=== PATIENT | female | born 1975 | race Caucasian/White ===

== ENCOUNTER 2016-11-19 08:42 | Inpatient (IN) | payer OTHER ==
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
[~2016-11-19 08:42] MED LIST: Buffered Lidocaine 1% SYR 3ML* 3 ML/SYR SYRINGE INTRADERM ONE; Bupivacaine 0.5% W/EPI SDV* 30 ML VIAL ONE; Methylene Blue 1%* 10 ML VIAL ONE
[2016-11-19] MEDS ORDERED: Heparin VIAL(*) 5000 UNITS/ML VIAL (FIVE THOUSAND) ONE (08:48)
[2016-11-19] MEDS ORDERED: ceFAZolin 1 GM in Dextrose (*) 1 GM/50 ML BAG IVPB ONE (08:49)
[2016-11-19] MEDS ORDERED: Clindamycin 900 MG IVPREMIX(* 900 MG/50 ML SDV IV ONE (08:49)
[2016-11-19] MEDS ORDERED: Buffered Lidocaine 1% SYR 3ML* 3 ML/SYR SYRINGE ONE (08:49)
[2016-11-19] MEDS ORDERED: ceFAZolin 2 GM PREMIX (*) 2 GM/50 ML BAG IVPB ONE (08:49)
[2016-11-19 09:10] LABS: Manual Entry Verification HAN0055; UR Preg Internal Control QC Line Present
[2016-11-19] MEDS ORDERED: fentaNYL* 50 MCG/ML 2 ML VIAL (100 MCG VIAL) ONE ×2 (11:07→15:41)
[2016-11-19] MEDS ORDERED: Dexamethasone IV* 4 MG/ML 1 ML (4 MG) ONE (11:07)
[2016-11-19] MEDS ORDERED: Propofol* 10 MG/ML 20 ML BTL IV PUSH ONE (11:07)
[2016-11-19] MEDS ORDERED: Midazolam* 1 MG/ML 5 ML VIAL (5 MG) ONE (11:08)
[2016-11-19] MEDS ORDERED: Atracurium* 10 MG/ML 10 ML VIAL ONE (11:08)
[2016-11-19] MEDS ORDERED: Ondansetron INJ* 2 MG/ML VIAL ONE ×2 (11:16→16:27)
[2016-11-19] MEDS ORDERED: Acetaminophen ADULT LIQ* 650 MG/20.3 ML UDC PO PRN (15:32)
[2016-11-19] MEDS ORDERED: diPHENhydraMINE IV* 50 MG/ML 1 ml VIAL (BENADRYL) SLOW PUSH PRN (15:32)
[2016-11-19] MEDS ORDERED: Ondansetron INJ* 2 MG/ML VIAL IV PRN ×2 (15:32→15:34)
[2016-11-19] MEDS ORDERED: DiMENhydriNATE IV* 50 MG/ML VIAL IV PUSH PRN (15:34)
--- NOTE | 2016-11-19 15:40 | SURGPN ---
Brief Operative Note - Surgery Procedures: PRE/POSTOP DX: MORBID OBESITY PROC: LRYGB SURG: MECENAS ASSIST: DYAN ANES: GET/SANITO EBL: MIN IVF: LR SPEC: NONE DRAIN: NONE COMPL: NONE COND: STABLE TO RR
[2016-11-19] MEDS ORDERED: HYDROmorphone INJ* 1 MG/ML CARPUJECT SYRINGE ONE (15:41)
[2016-11-19] MEDS ORDERED: DiMENhydriNATE IV* 50 MG/ML VIAL ONE (15:42)
[2016-11-19] MEDS: fentaNYL* 50 MCG/ML 2 ML VIAL (100 MCG VIAL) IV PRN ×4 (15:46→16:51)
[2016-11-19] MEDS: HYDROmorphone INJ* 1 MG/ML CARPUJECT SYRINGE IV PRN ×6 (15:47→22:02)
[2016-11-19] MEDS ORDERED: Insulin REGULAR(*) 1 UNITS UNIT ONE (16:15)
[2016-11-19] MEDS ORDERED: Ketorolac INJ* 30 MG/ML 1 ML VIAL ONE (17:24)
[2016-11-19] MEDS: Ketorolac INJ* 30 MG/ML 1 ML VIAL IV PRN (17:25)
[2016-11-19] MEDS ORDERED: Labetalol IV* 5 MG/ML 20 ML VIAL ONE (17:44)
[2016-11-19] MEDS ORDERED: Insulin REGULAR(*) 1 UNITS UNIT SUBCUT SCH (18:00)
[2016-11-19] MEDS ORDERED: Famotidine IV * 20 MG in NS 0.9% 100 ML* 100 ML IVPB SCH (21:00)
[2016-11-19] MEDS: Heparin VIAL(*) 5000 UNITS/ML VIAL (FIVE THOUSAND) SUBCUT SCH (22:13)
[2016-11-20] MEDS: Insulin REGULAR(*) 1 UNITS UNIT SUBCUT SCH ×5 (00:05→23:46)
[2016-11-20] MEDS: Ketorolac INJ* 30 MG/ML 1 ML VIAL IV PRN ×3 (00:06→17:08)
[2016-11-20] MEDS: Heparin VIAL(*) 5000 UNITS/ML VIAL (FIVE THOUSAND) SUBCUT SCH ×3 (06:03→23:34)
--- NOTE | 2016-11-20 06:23 | OP ---
DATE OF OPERATION: 11/19/16 - ROOM #352 DATE OF : 75 SURGEON: Lionel Yanez MD [facility]: Richard Harvey MD ANESTHESIOLOGIST: Dr. Tomas. ANESTHESIA: General endotracheal. PRE-OP DIAGNOSIS: Morbid obesity. POST-OP DIAGNOSIS: Morbid obesity. OPERATIVE PROCEDURE: Laparoscopic Jose-en-Y gastric bypass. ESTIMATED BLOOD LOSS: Minimal. IV FLUIDS: Crystalloids. SPECIMEN: None. DRAINS: None. COMPLICATIONS: None. COUNTS: The instruments, needle, and sponge counts were correct. DESCRIPTION OF PROCEDURE: The patient was brought to the operating room and placed on table supine. Sequential compression devices were placed in both lower extremities. General anesthesia was administered. The abdomen was prepped and draped in the usual sterile fashion. She received appropriate intravenous antibiotics. A Keith catheter was placed prior to the prep. A time -out was performed. Local anesthetic was infiltrated into the skin and soft tissue prior to making its incision. Entry to the abdomen was through a left upper quadrant incision accommodating a 12-mm optical trocar. After accessing the peritoneal cavity, carbon dioxide was insufflated to a pressure of 15 mmHg. Under direct visualization, a 12-mm bladeless trocar was placed in the supraumbilical midline and also in the right upper quadrant; 5 mm bladeless trocars were placed in the right upper quadrant medially and left upper quadrant laterally. A Celestino liver retractor was placed percutaneously in the subxiphoid position and used to elevate the left lobe of the liver. The patient's gastric anatomy revealed it to be normal. Further this was freed from the attachments to the left adina of the diaphragm bluntly near the angle of His. Then perigastric dissection was undertaken on the lesser curvature in order to enter the lesser sac. After entering the lesser sac, the gastric pouch was created. Transverse firing with a Endo TANISHA stapler with a gomez cartridge was used and then vertical firings with the Endo TANISHA stapler with gomez cartridges was used to complete the gastric pouch, which approximated to 20 mL volume. After assuring hemostasis of the staple lines, the small bowel was then identified at the ligament of Treitz and measured out 40 to 50 cm at which point, the bowel was approximated to the left lateral aspect of the gastric pouch with interrupted 3- 0 silks. The bowel was oriented so that the Jose limb would be to the right side of the patient and the biliopancreatic limb to the left of the side of the patient. The gastrojejunal anastomosis was then created with the Endo TANISHA stapler with a gomez cartridge and then the common gastroenterotomy was closed with a 3-0 Maxon single layer running. This was done over a 36-[place] gastric lavage tube. The bowel loop was then divided with a Endo TANISHA stapler with a gomez cartridge. The anastomosis was then tested with methylene blue dye solution still through the orogastric tube. After identifying no leaks of the anastomosis, the Jose limb was then measured out for 75 cm and at this point, a functional end- to-side jejunostomy was created with a 16 mm gomez cartridge. Common enterotomy was closed again with 3-0 Maxon. The mesenteric defect was closed with 3-0 silk in a running locking fashion. The inspection revealed each anastomosis to be intact and hemostasis was excellent. Celestino liver retractor was removed under direct visualization as were the trocars and the carbon dioxide was released. Skin incisions were closed with monty. Dressings were applied. The patient tolerated the procedure well. She was extubated uneventfully. She was transferred to the recovery room in a stable condition. CC: Dr. Keri Krishnamurthy; [facility] * [id number]/[facility] #: [id number] LIZ
[2016-11-20] MEDS: HYDROmorphone INJ* 1 MG/ML CARPUJECT SYRINGE IV PRN ×3 (06:46→20:13)
[2016-11-20] MEDS: Famotidine IV* 10 MG/ML 2 ML (20 mg) IV SCH ×2 (08:43→21:10)
[2016-11-20] MEDS: D5W 1/2 NS KCl 20 Meq 1000 ML* 1,000 ML IV SCH (17:06)
[2016-11-20] MEDS: HYDROcodone/ACET. 7.5/325 LIQ* 15 ML UDC PO PRN ×2 (17:07→23:33)
[2016-11-21] MEDS: D5W 1/2 NS KCl 20 Meq 1000 ML* 1,000 ML IV SCH ×2 (01:14→09:14)
[2016-11-21] MEDS: Insulin REGULAR(*) 1 UNITS UNIT SUBCUT SCH ×2 (06:10→12:03)
[2016-11-21] MEDS: Heparin VIAL(*) 5000 UNITS/ML VIAL (FIVE THOUSAND) SUBCUT SCH ×2 (06:12→13:55)
[2016-11-21] MEDS: HYDROcodone/ACET. 7.5/325 LIQ* 15 ML UDC PO PRN ×2 (07:59→13:54)
[2016-11-21] MEDS: Famotidine IV* 10 MG/ML 2 ML (20 mg) IV SCH (09:15)
[2016-11-21 11:50] VITALS: BP 126/77
--- NOTE | 2016-11-21 14:03 | PN ---
Progress Note - Progress Note Note: Surgery Progress: S: POD #2. Seen this a.m. by Dr. Yanez. c/o abd pain (using hydrocodone w/ effect); better than yesterday. Meche clears; no N/V. Passing flatus. Ambulating. Voiding well. O: Vital Signs - 8 hr 11/21/16 11/21/16 11/21/16 06:14 07:35 07:59 Temperature 98.2 F Pulse Rate 88 Respiratory 16 16 16 Rate Blood Pressure 121/43 (mmHg) O2 Sat by Pulse 95 95 Oximetry 11/21/16 11/21/16 11/21/16 08:00 09:59 10:00 Temperature Pulse Rate Respiratory 18 16 18 Rate Blood Pressure (mmHg) O2 Sat by Pulse 95 95 Oximetry 11/21/16 11/21/16 11/21/16 11:48 12:00 13:54 Temperature 98.5 F Pulse Rate 56 Respiratory 16 17 16 Rate Blood Pressure 126/77 (mmHg) O2 Sat by Pulse 97 94 Oximetry Intake and Output Last 24 Hours 11/19/16 11/20/16 11/21/16 11/22/16 06:59 06:59 06:59 06:59 Intake Total 4915 3320 1299 Output Total 2875 1900 1400 Balance 2040 1420 -101 Weight 228 lb Intake: IV Fluids 4810 2960 1299 D5W 1/2 NS 20 meq KCL 980 1299 LR 3960 1980 Lactated Ringer's 850 IVPB 105 LR 105 Oral 0 360 Output: Urine 2325 1900 1400 Keith 550 Other: # Bowel Movements 0 Heart: reg Lungs: decreased BS at bases (has IS at bedside); upper qiu clear Abd: lap incisions ok; one w/ dry dressings, others open. +BS. Soft, mild to mod , mostly incisional tenderness. Lab/fs gluc: Laboratory Tests 11/20/16 11/20/16 11/20/16 11:46 18:30 23:40 POC Glucose (mg/dL) 101 138 H 157 H 11/21/16 11/21/16 06:08 11:42 POC Glucose (mg/dL) 134 H 152 H A: s/p lap Jose En Y gastric bypass, doing well P: ok for d/c home; instructions reviewed; office f/u 1 wk
--- NOTE | 2016-11-21 21:29 | DS ---
DISCHARGE SUMMARY: DATE OF ADMISSION: 11/19/16 DATE OF DISCHARGE: 11/21/16 ATTENDING SURGEON: Lionel Yanez MD HOSPITAL COURSE: Please refer to admission history and physical for admission details. The patient was taken to the operating room on 11/19/16; at which time , she underwent laparoscopic Jose-en-Y gastric bypass with Dr. Yanez. She has had an otherwise uneventful postoperative course with gradual improvement in both her pain management and her oral intake of bariatric clear liquids. She was seen earlier this morning and again this afternoon and it was felt that she met criteria for discharge. PHYSICAL EXAMINATION: Vital signs: Exam as of the afternoon of discharge, temperature 98.5, blood pressure 126/77, pulses ranged from 48 to 88 over the last 24 hours, respirations 16 to 18, and room air saturation 90% to 98% (she does use CPAP at night). General: Well appearing, in no acute distress. Skin : Warm and dry. No suspicious rashes or lesions. Lungs: Clear to auscultation in the upper qiu, but with decreased breath sounds at both bases (the patient encouraged to continue to use her incentive spirometer). Heart: Regular rate and rhythm. No murmur noted. Abdomen: Laparoscopic port sites are clean with monty intact, one of the sites is covered with a 2 x 2 dressing, which is clean and dry. Bowel sounds are present. Abdomen is soft with [id number]-cv-kavjgogk tenderness, which is primarily incisional. Fingersticks over the last 24 hours have ranged from 101 to 157. IMPRESSION: Status post laparoscopic Jose-en-Y gastric bypass, doing well. PLAN: Discharge home today. Instructions were reviewed with the patient. She will call to set up a followup in our office within 1 week. She will resume all of her usual medications as she is able with the exception of metformin, which will be on hold. She will monitor fingersticks at home as needed. She may use Tylenol and ddcf-hes-zklpoer ibuprofen p.r.n. for mild pain and she has a prescription for hydrocodone liquid for stronger pain. TONEY HEATH CC: Dr. Krishnamurthy in [place] * [id number]/[facility] #: [id number] LIZ
== END 2016-11-21 14:30 | disposition home or self-care (01) | DRG 403 ==
LOC: AA 08:42 → SSU 15:32
PROVIDERS: ADMIT Surgery; ATTEND Surgery
PROC: 0D164ZA Bypass Stomach to Jejunum, Percutaneous Endoscopic Approach (ICD-10-PCS; principal; 2016-11-19 10:15)
DX: E66.01 Morbid (severe) obesity due to excess calories (principal); F32.9 Major depressive disorder, single episode, unspecified; Z68.42 Body mass index [BMI] 45.0-49.9, adult; G47.33 Obstructive sleep apnea (adult) (pediatric); E11.9 Type 2 diabetes mellitus without complications; E78.00 Pure hypercholesterolemia, unspecified; F41.9 Anxiety disorder, unspecified; J45.909 Unspecified asthma, uncomplicated; Z83.3 Family history of diabetes mellitus; Z82.49 Family history of ischemic heart disease and other diseases of the circulatory system
CPT/HCPCS: 81025; 94760; C1776; J0690; J1100; J1170; J1240; J1644; J1885; J2250; J2405; J2704; J3010

== ENCOUNTER → 2017-12-15 08:48 | Emergency (ER) | payer OTHER ==
[2017-12-15 10:15] VITALS: BP 133/84
--- NOTE | 2017-12-15 10:38 | UC ---
FLU HPI - HPI Summary HPI Summary: Pt c/o sudden onset of fever, chills, body aches X 2 days. Pt was seen by PCP on friday12/10/17.was diagnosed with sinusitis and is currently on amox. - History of Current Complaint Chief Complaint: UCRespiratory Stated Complaint: FLU LIKE SYMPTOMS Time Seen by Provider: 12/15/17 10:12 Hx Obtained From: Patient Hx Last Menstrual Period: 12/08/17 ?: No Onset/Duration: Sudden Onset, Lasting Days, Still Present, Worse Since - onset Severity Currently: Moderate Severity Initially: Moderate Pain Intensity: 10 Associated Signs & Symptoms: Positive: Fever, Myalgia, Nasal Congestion - Risk Factors Influenza Risk Factors: Negative - Allergy/Home Medications Allergies/Adverse Reactions: Allergies Allergy/AdvReac Type Severity Reaction Status Date / Time NSAIDS (Non-Steroidal Allergy See Comment Verified 12/15/17 10:04 Anti-Inflamma PMH/Surg Hx/FS Hx/Imm Hx Previously Healthy: Yes - Surgical History Surgical History: Yes Surgery Procedure, Year, and Place: SHOULDER SURGERY. [id number]. SURGERY AN FOR FUSED BONES IN SKULL. 2016 D&C. Nov 2016 Gastric bypass - Family History Known Family History: Positive: Cardiac Disease - Social History Occupation: Employed Full-time Lives: With Family Alcohol Use: None Alcohol Amount: 1/ YEAR Substance Use Type: None Smoking Status (MU): Never Smoked Tobacco Have You Smoked in the Last Year: No - Immunization History Most Recent Influenza Vaccination: decl Most Recent Tetanus Shot: not ordered Most Recent Pneumonia Vaccination: none Review of Systems Constitutional: Fever, Chills, Fatigue Skin: Negative Eyes: Negative ENT: Sinus Congestion Respiratory: Cough Cardiovascular: Negative Gastrointestinal: Negative Genitourinary: Negative Motor: Negative Neurovascular: Negative Musculoskeletal: Myalgia Neurological: Headache Psychological: Negative Is Patient Immunocompromised?: No All Other Systems Reviewed And Are Negative: Yes Physical Exam Triage Information Reviewed: Yes Appearance: Ill-Appearing Vital Signs: Initial Vital Signs Temp 100 F 12/15/17 10:06 Pulse 71 12/15/17 10:06 Resp 16 12/15/17 10:06 BP 133/84 12/15/17 10:06 Pulse Ox 100 12/15/17 10:06 Vital Signs Reviewed: Yes Eye Exam: Normal ENT Exam: Other ENT: Positive: Nasal congestion, Sinus tenderness Dental Exam: Normal Neck exam: Normal Respiratory Exam: Normal Cardiovascular Exam: Normal Musculoskeletal Exam: Normal Neurological Exam: Normal Psychological Exam: Normal Skin Exam: Normal Diagnostics - Laboratory Diagnostic Studies Completed/Ordered: Rapid: INfluenza A Flu Course/Dx - Differential Dx/Diagnosis Differential Diagnosis/HQI/PQRI: Influenza, Pneumonia Provider Diagnoses: INfluenza A Discharge - Discharge Plan Condition: Stable Disposition: HOME Prescriptions: Oseltamivir CAP* [Tamiflu CAP*] 75 mg PO Q12H #10 cap predniSONE TAB* [Deltasone TAB*] 30 mg PO DAILY #12 tab Patient Education Materials: Influenza (ED) Forms: *Work Release Referrals: Keri Krishnamurthy MD [Primary Care Provider] - If Needed
== END | disposition home or self-care (01) ==
LOC: UCCORT 08:48
DX: J09.X2 Influenza due to identified novel influenza A virus with other respiratory manifestations (principal)
CPT/HCPCS: 87502; 99212; G0463

== ENCOUNTER 2018-12-23 07:01 | Emergency (ER) | payer BC ==
--- OUTSIDE RECORDS SUMMARY | 2018-12-23 07:13 | XMS REPORT | Continuity of Care Document ---
:1975 External Reference #:[id number] Author Name Lisa Esquivel Care Team Providers Name Role Phone Keri Krishnamurthy MD Primary Care Physician Unavailable Payers Type Date Identification Numbers Payment Provider Subscriber Effective: 2018 Policy Number: [id number] [employer] Anna Faria PayID: [id number] [address] [address] [place] [address] Advance Directives Description No Information Available Problems Description No Information Family History Date Family Member(s) Problem(s) Comments General Diabetes General Heart Disease General Deep Venous Thrombosis (DVT) Father due to Diabetes () Mother due to Heart Disease () Social History Type Date Description Comments Sex Unknown Lives With Lives With Daughter Occupation Currently Working ETOH Use Denies alcohol use Tobacco Use Start: Unknown Patient has never smoked Smoking Status Reviewed: 11/24/18 Patient has never smoked Exercise Exercises at a health Document: 08/22/16 - Type/Frequency club 5 times a week [facility] Chart Prep Exercise Walks sporadically Type/Frequency Allergies, Adverse Reactions, Alerts Description No Known Drug Allergies Medications Medication Date Status Form Strength Qnty SIG Indications Ordering Provider Nystatin 08/29/ Active Powder 1units Apply to June Escoto 2017 affected MD Jaret areas bid prn Vitamin D / Active Capsules 2000Units daily Unknown (Ergocalcifero 0000 (when pt l) remebers) Vitamin B12 / Active 1 by mouth Unknown 0000 every day-SL Cetirizine HCL / Active Chewtabs 10mg once a day Unknown 0000 Sertraline HCL / Active Tablets 50mg 1 by mouth Unknown 0000 every day Buspirone HCL / Active Tablets 5mg 1 by mouth Unknown 0000 two times a day Metformin HCL / Active Tablets 500mg 2 by mouth Unknown 0000 every evening Daily Multiple / Active Tablets 1 by mouth Unknown Vitamins 0000 every day Omeprazole / Active Capsules 20mg 1 by mouth Unknown 0000 DR every day Hydrocodone 11/07/ Hx Solution 7.5-325mg/ 240ml 10ml-15ml Gilda Bitartrate/Heath 2017 15ML by mouth B. 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 Simvastatin / Hx Tablets 20mg 1 by mouth Unknown 0000 every day Buspirone HCL / Hx Tablets 7.5mg 1 by mouth Unknown 0000 daily Metformin HCL / Hx Tablets 1000mg 1 by mouth Unknown 0000 twice a day Cetirizine HCL / Hx Chewtabs 10mg daily Unknown 0000 Citalopram / Hx Tablets 40mg 1 by mouth Unknown Hydrobromide 0000 - every day 2018 Diclofenac / Hx Tablets DR 75mg take 1 Unknown Sodium 0000 tablet twice a day prn with food Vitamin C / Hx Capsules 500mg 1 by mouth Unknown 0000 every day Flintstones / Hx 2 tabs Unknown 0000 - daily 2018 Calcium Chews / Hx 250 MG Unknown 0000 three times a day Biotin Maximum / Hx Tablets [id number] take one Unknown Strength 0000 capsule/ta blet daily by mouth Immunizations Description No Information Available Vital Signs Date Vital Result Comment 11/24/2018 2:48pm Height 59 inches 4'11" Weight 176.00 lb Heart Rate 56 /min BP Systolic 114 mmHg BP Diastolic 80 mmHg O2 % BldC Oximetry 98 % BMI (Body Mass Index) 35.5 kg/m2 Last Menstrual Period [id number] 08/29/2017 10:07am Height 59 inches 4'11" Weight 165.00 lb Heart Rate 66 /min BP Systolic Sitting 102 mmHg BP Diastolic Sitting 70 mmHg Respiratory Rate 16 /min Body Temperature 98.0 F BMI (Body Mass Index) 33.3 kg/m2 05/15/2017 10:04am Height 59 inches 4'11" Weight 179.00 lb Heart Rate 68 /min BP Systolic 116 mmHg BP Diastolic 72 mmHg Respiratory Rate 16 /min Body Temperature 98.4 F BMI (Body Mass Index) 36.1 kg/m2 02/13/2017 10:22am Height 59 inches 4'11" Weight 197.00 lb Heart Rate 66 /min BP Systolic 112 mmHg BP Diastolic 72 mmHg Respiratory Rate 16 /min Body Temperature 97.9 F BMI (Body Mass Index) 39.8 kg/m2 12/20/2016 10:32am Height 59 inches 4'11" Weight 210.00 lb Heart Rate 78 /min BP Systolic 124 mmHg BP Diastolic 78 mmHg Respiratory Rate 16 /min Body Temperature 98.2 F BMI (Body Mass Index) 42.4 kg/m2 11/29/2016 3:48pm Height 59 inches 4'11" Weight 212.00 lb Heart Rate 72 /min BP Systolic 110 mmHg BP Diastolic 80 mmHg Respiratory Rate 20 /min Body Temperature 98.6 F BMI (Body Mass Index) 42.8 kg/m2 11/27/2016 11:24am Height 59 inches 4'11" Weight 214.00 lb Heart Rate 74 /min BP Systolic Sitting 126 mmHg BP Diastolic Sitting 88 mmHg Respiratory Rate 18 /min Body Temperature 98.7 F BMI (Body Mass Index) 43.2 kg/m2 11/07/2016 9:16am Height 59 inches 4'11" Weight 232.00 lb Heart Rate 84 /min BP Systolic Sitting 120 mmHg BP Diastolic Sitting 82 mmHg Respiratory Rate 16 /min Body Temperature 97.7 F BMI (Body Mass Index) 46.9 kg/m2 09/09/2016 11:37am Height 59 inches 4'11" Weight 232.00 lb Heart Rate 72 /min BP Systolic 112 mmHg BP Diastolic 72 mmHg Respiratory Rate 16 /min Body Temperature 98.6 F BMI (Body Mass Index) 46.9 kg/m2 08/22/2016 9:46am Height 59 inches 4'11" Weight 237.00 lb Heart Rate 78 /min BP Systolic 110 mmHg BP Diastolic 62 mmHg Respiratory Rate 16 /min Body Temperature 97.9 F BMI (Body Mass Index) 47.9 kg/m2 Results Test Date Facility Test Result H/L Range Note CBC Auto Diff 05/09/2018 [facility] White Blood 6.5 10^3/uL N 3.5-10.[address] [place] [address] [phone] Red Blood Count 4.24 10^6/uL N 4.00-5.40 Hemoglobin 12.8 g/dL N 12.0-16.0 Hematocrit 39 % N 35-47 Mean Corpuscular Volume 92 fL N 80-97 Mean Corpuscular Hemoglobin 30 pg N 27-31 Mean Corpuscular HGB Conc 33 g/dL N 31-36 Red Cell Distribution Width 13 % N 10.5-15 Platelet Count 230 10^3/uL N 150-450 Mean Platelet Volume 9.2 um3 N 7.4-10.4 Abs Neutrophils 3.8 10^3/uL N 1.5-7.7 Abs Lymphocytes 2.1 10^3/uL N 1.0-4.8 Abs Monocytes 0.4 10^3/uL N 0-0.8 Abs Eosinophils 0.1 10^3/uL N 0-0.6 Abs Basophils 0.1 10^3/uL N 0-0.2 Abs Nucleated RBC 0 10^3/uL Granulocyte % 58.6 % N 38-83 Lymphocyte % 32.1 % N 25-47 Monocyte % 6.5 % N 0-7 Eosinophil % 1.8 % N 0-6 Basophil % 1.0 % N 0-2 Nucleated Red Blood Cells % 0 Comp Metabolic Panel 05/09/2018 [facility] Sodium 139 mmol/L N 135-[address] [place] [address] [phone] Potassium 4.1 mmol/L N 3.5-5.0 Chloride 104 mmol/L N 101-111 Co2 Carbon Dioxide 29 mmol/L N 22-32 Anion Gap 6 mmol/L N 2-11 Glucose 93 mg/dL N 70-100 Blood Urea Nitrogen 9 mg/dL N 6-24 Creatinine 0.61 mg/dL N 0.51-0.95 BUN/Creatinine Ratio 14.8 N 8-20 Calcium 8.5 mg/dL Low 8.6-10.3 Total Protein 6.2 g/dL Low 6.4-8.9 Albumin 3.6 g/dL N 3.2-5.2 Globulin 2.6 g/dL N 2-4 Albumin/Globulin Ratio 1.4 N 1-3 Total Bilirubin 0.60 mg/dL N 0.2-1.0 Alkaline Phosphatase 76 U/L N 34-104 Alt 20 U/L N 7-52 Ast 19 U/L N 13-39 Egfr Non- 107.0 >60 Egfr 129.5 >60 1 Iron & Iron Binding 05/09/2018 [facility] Iron 115 g/dL N 50 -212 [address] [place] [address] [phone] Unsaturated Iron Binding 298 g/dL Total Iron Binding Capacity 413 g/dL N 250-450 Transferrin 295 mg/dL N 203-362 % Iron Saturation 28 % N 15-55 Laboratory test 05/09/2018 [facility] Ferritin 4.3 ng/mL Low 11-307 finding [address] [place] [address] [phone] Folic Acid (Folate) 10.12 ng/mL >3.99 Vitamin B12 599 pg/mL N 180-914 2 Vitamin D Total 25(Oh) 28.0 ng/mL N 20-50 Hemoglobin A1c 6.5 % High 4.0-5.6 3 Vitamin B1 (Whole Blood) 130 nmol/L 70-180 4 Vitamin E Level 11.4 mg/L 5.5 - 17.0 5 CBC Auto Diff 01/12/2018 [facility] White Blood 6.7 10^3/uL N 3.5-10.[address] [place] [address] [phone] Red Blood Count 4.28 10^6/uL N 4.0-5.4 Hemoglobin 13.3 g/dL N 12.0-16.0 Hematocrit 40 % N 35-47 Mean Corpuscular Volume 93 fL N 80-97 Mean Corpuscular Hemoglobin 31 pg N 27-31 Mean Corpuscular HGB Conc 33 g/dL N 31-36 Red Cell Distribution Width 13 % N 10.5-15 Platelet Count 232 10^3/uL N 150-450 Mean Platelet Volume 9 um3 N 7.4-10.4 Abs Neutrophils 3.9 10^3/uL N 1.5-7.7 Abs Lymphocytes 2.1 10^3/uL N 1.0-4.8 Abs Monocytes 0.4 10^3/uL N 0-0.8 Abs Eosinophils 0.2 10^3/uL N 0-0.6 Abs Basophils 0.1 10^3/uL N 0-0.2 Abs Nucleated RBC 0 10^3/uL Granulocyte % 58.3 % N 38-83 Lymphocyte % 31.5 % N 25-47 Monocyte % 6.5 % N 0-7 Eosinophil % 2.7 % N 0-6 Basophil % 1.0 % N 0-2 Nucleated Red Blood Cells % 0 Comp Metabolic Panel 01/12/2018 [facility] Sodium 138 mmol/L N 133-145 [address] [place] [address] [phone] Potassium 4.0 mmol/L N 3.5-5.0 Chloride 104 mmol/L N 101-111 Co2 Carbon Dioxide 29 mmol/L N 22-32 Anion Gap 5 mmol/L N 2-11 Glucose 90 mg/dL N 70-100 Blood Urea Nitrogen 7 mg/dL N 6-24 Creatinine 0.54 mg/dL N 0.51-0.95 BUN/Creatinine Ratio 13.0 N 8-20 Calcium 8.6 mg/dL N 8.6-10.3 Total Protein 6.0 g/dL Low 6.4-8.9 Albumin 3.6 g/dL N 3.2-5.2 Globulin 2.4 g/dL N 2-4 Albumin/Globulin Ratio 1.5 N 1-3 Total Bilirubin 0.70 mg/dL N 0.2-1.0 Alkaline Phosphatase 73 U/L N 34-104 Alt 30 U/L N 7-52 Ast 19 U/L N 13-39 Egfr Non- 123.8 >60 Egfr 159.2 >60 6 Iron & Iron Binding 01/12/2018 [facility] Iron 139 g/dL N 50 -212 [address] [place] [address] [phone] Unsaturated Iron Binding 217 g/dL Total Iron Binding Capacity 356 g/dL N 250-450 Transferrin 254 mg/dL N 203-362 % Iron Saturation 39 % N 15-55 Laboratory test 01/12/2018 [facility] Ferritin 13.3 ng/mL N 11 -307 7 finding [address] [place] [address] [phone] Folic Acid (Folate) 6.76 ng/mL >3.99 8 Vitamin B12 909 pg/mL N 180-914 9 Vitamin D Total 25(Oh) 17.3 ng/mL Low 20-50 10 Vitamin B1 (Whole Blood) 116 nmol/L 70-180 11 Vitamin E Level 9.3 mg/L 5.5 - 17.0 12 Iron & Iron Binding 08/15/2017 [facility] Iron 110 g/dL N 50 -[address] [place] [address] [phone] Unsaturated Iron Binding 257 g/dL N Total Iron Binding Capacity 367 g/dL N 250-450 % Iron Saturation 30 % N 15-55 CBC Auto Diff 08/15/2017 [facility] White Blood 5.6 10^3/uL N 3.5-10.[address] [place] [address] [phone] Red Blood Count 4.44 10^6/uL N 4.0-5.4 Hemoglobin 13.7 g/dL N 12.0-16.0 Hematocrit 41 % N 35-47 Mean Corpuscular Volume 93 fL N 80-97 Mean Corpuscular Hemoglobin 31 pg N 27-31 Mean Corpuscular HGB Conc 33 g/dL N 31-36 Red Cell Distribution Width 13 % N 10.5-15 Platelet Count 224 10^3/uL N 150-450 Mean Platelet Volume 9 um3 N 7.4-10.4 Abs Neutrophils 3.1 10^3/uL N 1.5-7.7 Abs Lymphocytes 1.9 10^3/uL N 1.0-4.8 Abs Monocytes 0.4 10^3/uL N 0-0.8 Abs Eosinophils 0.1 10^3/uL N 0-0.6 Abs Basophils 0 10^3/uL N 0-0.2 Abs Nucleated RBC 0 10^3/uL N Granulocyte % 56.0 % N 38-83 Lymphocyte % 34.1 % N 25-47 Monocyte % 6.7 % N 1-9 Eosinophil % 2.3 % N 0-6 Basophil % 0.9 % N 0-2 Nucleated Red Blood Cells % 0.1 N Comp Metabolic Panel 08/15/2017 [facility] Sodium 138 mmol/L N 133-[address] [place] [address] [phone] Potassium 4.3 mmol/L N 3.5-5.0 Chloride 105 mmol/L N 101-111 Co2 Carbon Dioxide 29 mmol/L N 22-32 Anion Gap 4 mmol/L N 2-11 Glucose 86 mg/dL N 70-100 Blood Urea Nitrogen 8 mg/dL N 6-24 Creatinine 0.58 mg/dL N 0.51-0.95 BUN/Creatinine Ratio 13.8 N 8-20 Calcium 8.5 mg/dL Low 8.6-10.3 Total Protein 6.1 g/dL Low 6.4-8.9 Albumin 3.9 g/dL N 3.2-5.2 Globulin 2.2 g/dL N 2-4 Albumin/Globulin Ratio 1.8 N 1-3 Total Bilirubin 0.70 mg/dL N 0.2-1.0 Alkaline Phosphatase 83 U/L N 34-104 Alt 33 U/L N 7-52 Ast 21 U/L N 13-39 Egfr Non- 114.0 N >60 Egfr 146.6 N >60 13 Bariatric Panel Post 08/15/2017 [facility] Ferritin 16.2 ng/mL N 11-307 [address] [place] [address] [phone] Vitamin B12 583 pg/mL N 180-914 14 Folic Acid (Folate) 8.97 ng/mL N >3.99 Vitamin D Total 25(Oh) 21.2 ng/mL N 20-50 Vitamin B1 (Whole Blood) 89 nmol/L N 70-180 15 Vitamin E Level 7.5 mg/L N 5.5 - 17.0 16 Bariatric Panel Post 05/02/2017 [facility] Ferritin 12.0 ng/mL N 11-307 [address] [place] [address] [phone] Vitamin B12 488 pg/mL N 180-914 17 Folic Acid (Folate) 13.01 ng/mL N >3.99 Vitamin D Total 25(Oh) 21.0 ng/mL Low 30-50 Vitamin B1 Whole Blood 95 nmol/L N 70-180 18 Vitamin E Level 9.3 mg/L N 5.5 - 17.0 19 Comp Metabolic Panel 05/02/2017 [facility] Sodium 137 mmol/L N 133-145 [address] [place] [address] [phone] Potassium 4.0 mmol/L N 3.5-5.0 Chloride 107 mmol/L N 101-111 Co2 Carbon Dioxide 29 mmol/L N 22-32 Anion Gap 1 mmol/L Low 2-11 Glucose 88 mg/dL N 70-100 Blood Urea Nitrogen 9 mg/dL N 6-24 Creatinine 0.59 mg/dL N 0.51-0.95 BUN/Creatinine Ratio 15.3 N 8-20 Calcium 8.6 mg/dL N 8.6-10.3 Total Protein 5.9 g/dL Low 6.4-8.9 Albumin 3.7 g/dL N 3.2-5.2 Globulin 2.2 g/dL N 2-4 Albumin/Globulin Ratio 1.7 N 1-3 Total Bilirubin 0.60 mg/dL N 0.2-1.0 Alkaline Phosphatase 72 U/L N 34-104 Alt 20 U/L N 7-52 Ast 16 U/L N 13-39 Egfr Non- 111.8 N >60 Egfr 143.8 N >60 20 CBC Auto Diff 05/02/2017 [facility] White Blood 6.5 10^3/uL N 3.5-10.[address] [place] [address] [phone] Red Blood Count 4.17 10^6/uL N 4.0-5.4 Hemoglobin 13.0 g/dL N 12.0-16.0 Hematocrit 40 % N 35-47 Mean Corpuscular Volume 96 fL N 80-97 Mean Corpuscular Hemoglobin 31 pg N 27-31 Mean Corpuscular HGB Conc 33 g/dL N 31-36 Red Cell Distribution Width 14 % N 10.5-15 Platelet Count 212 10^3/uL N 150-450 Mean Platelet Volume 10 um3 N 7.4-10.4 Abs Neutrophils 3.6 10^3/uL N 1.5-7.7 Abs Lymphocytes 2.2 10^3/uL N 1.0-4.8 Abs Monocytes 0.5 10^3/uL N 0-0.8 Abs Eosinophils 0.1 10^3/uL N 0-0.6 Abs Basophils 0 10^3/uL N 0-0.2 Abs Nucleated RBC 0 10^3/uL N Granulocyte % 55.9 % N 38-83 Lymphocyte % 34.3 % N 25-47 Monocyte % 7.1 % N 1-9 Eosinophil % 1.9 % N 0-6 Basophil % 0.8 % N 0-2 Nucleated Red Blood Cells % 0 N Iron & Iron Binding 05/02/2017 [facility] Iron 93 g/dL N 50- [address] [place] [address] [phone] Unsaturated Iron Binding 256 g/dL N Total Iron Binding Capacity 349 g/dL N 250-450 % Iron Saturation 27 % N 15-55 CBC No Diff 11/07/2016 [facility] White Blood 11.2 10^3/uL High 3.5-10.[address] [place] [address] [phone] Red Blood Count 4.33 10^6/uL N 4.0-5.4 Hemoglobin 12.7 g/dL N 12.0-16.0 Hematocrit 39 % N 35-47 Mean Corpuscular Volume 90 fL N 80-97 Mean Corpuscular Hemoglobin 29 pg N 27-31 Mean Corpuscular HGB Conc 32 g/dL N 31-36 Red Cell Distribution Width 13 % N 10.5-15 Platelet Count 234 10^3/uL N 150-450 Mean Platelet Volume 10 um3 N 7.4-10.4 Basic Metabolic Panel 11/07/2016 [facility] Sodium 133 mmol/L N 133-[address] [place] [address] [phone] Potassium 4.0 mmol/L N 3.5-5.0 Chloride 100 mmol/L Low 101-111 Co2 Carbon Dioxide 28 mmol/L N 22-32 Anion Gap 5 mmol/L N 2-11 Glucose 100 mg/dL N 70-100 Blood Urea Nitrogen 13 mg/dL N 6-24 Creatinine 0.60 mg/dL N 0.51-0.95 BUN/Creatinine Ratio 21.7 High 8-20 Calcium 8.5 mg/dL Low 8.6-10.3 Egfr Non- 110.2 N >60 Egfr 141.7 N >60 21 1 Because ethnic data is not always readily available, this report includes an eGFR for both -Americans and non- Americans. The National Kidney Disease Education Program (NKDEP) does not endorse the use of the MDRD equation for patients that are not between the ages of 18 and 70, are , have extremes of body size, muscle mass, or nutritional status, or are non- or non-. According to the National Kidney Foundation, irrespective of diagnosis, the stage of the disease is based on the level of kidney function: Stage Description GFR(mL/min/1.73 m(2)) 1 Kidney damage with normal or decreased GFR 90 2 Kidney damage with mild decrease in GFR 60-89 3 Moderate decrease in GFR 30-59 4 Severe decrease in GFR 15-29 5 Kidney failure <15 (or dialysis) 2 Normal Range 180 to 914 Indeterminate Range 145 to 180 Deficient Range <145 3 Therapeutic target for the treatment of diabetes mellitus patients is <7% HBA1C, and in selective patients <6.0%. Please refer to [place] [employer] diabetic care guidelines for further information. 4 ADDITIONAL INFORMATION This test was developed and its performance characteristics determined by [facility] in a manner consistent with CLIA requirements. This test has not been cleared or approved by the U.S. Food and Drug Administration. Test Performed by: [facility] - [address] [address] 5 ADDITIONAL INFORMATION This test was developed and its performance characteristics determined by [facility] in a manner consistent with CLIA requirements. This test has not been cleared or approved by the U.S. Food and Drug Administration. Test Performed by: [facility] [place] [address] 6 Because ethnic data is not always readily available, this report includes an eGFR for both -Americans and non- Americans. The National Kidney Disease Education Program (NKDEP) does not endorse the use of the MDRD equation for patients that are not between the ages of 18 and 70, are , have extremes of body size, muscle mass, or nutritional status, or are non- or non-. According to the National Kidney Foundation, irrespective of diagnosis, the stage of the disease is based on the level of kidney function: Stage Description GFR(mL/min/1.73 m(2)) 1 Kidney damage with normal or decreased GFR 90 2 Kidney damage with mild decrease in GFR 60-89 3 Moderate decrease in GFR 30-59 4 Severe decrease in GFR 15-29 5 Kidney failure <15 (or dialysis) 7 FASTING 8 FASTING 9 Normal Range 180 to 914 Indeterminate Range 145 to 180 Deficient Range <145 10 FASTING 11 ADDITIONAL INFORMATION This test was developed and its performance characteristics determined by [facility] in a manner consistent with CLIA requirements. This test has not been cleared or approved by the U.S. Food and Drug Administration. Test Performed by: [facility] - [address] [address] 12 ADDITIONAL INFORMATION This test was developed and its performance characteristics determined by [facility] in a manner consistent with CLIA requirements. This test has not been cleared or approved by the U.S. Food and Drug Administration. Test Performed by: [facility] - [address] [address] 13 Because ethnic data is not always readily available, this report includes an eGFR for both -Americans and non- Americans. The National Kidney Disease Education Program (NKDEP) does not endorse the use of the MDRD equation for patients that are not between the ages of 18 and 70, are , have extremes of body size, muscle mass, or nutritional status, or are non- or non-. According to the National Kidney Foundation, irrespective of diagnosis, the stage of the disease is based on the level of kidney function: Stage Description GFR(mL/min/1.73 m(2)) 1 Kidney damage with normal or decreased GFR 90 2 Kidney damage with mild decrease in GFR 60-89 3 Moderate decrease in GFR 30-59 4 Severe decrease in GFR 15-29 5 Kidney failure <15 (or dialysis) 14 Normal Range 180 to 914 Indeterminate Range 145 to 180 Deficient Range <145 15 ADDITIONAL INFORMATION This test was developed and its performance characteristics determined by [facility] in a manner consistent with CLIA requirements. This test has not been cleared or approved by the U.S. Food and Drug Administration. Test Performed by: [facility] - [address] [address] 16 ADDITIONAL INFORMATION This test was developed and its performance characteristics determined by [facility] in a manner consistent with CLIA requirements. This test has not been cleared or approved by the U.S. Food and Drug Administration. Test Performed by: [facility] - [address] [address] 17 Normal Range 180 to 914 Indeterminate Range 145 to 180 Deficient Range <145 18 ADDITIONAL INFORMATION This test was developed and its performance characteristics determined by [facility] in a manner consistent with CLIA requirements. This test has not been cleared or approved by the U.S. Food and Drug Administration. Test Performed by: [facility] - [address] [address] 19 ADDITIONAL INFORMATION This test was developed and its performance characteristics determined by [facility] in a manner consistent with CLIA requirements. This test has not been cleared or approved by the U.S. Food and Drug Administration. Test Performed by: [facility] - [address] [address] 20 Because ethnic data is not always readily available, this report includes an eGFR for both -Americans and non- Americans. The National Kidney Disease Education Program (NKDEP) does not endorse the use of the MDRD equation for patients that are not between the ages of 18 and 70, are , have extremes of body size, muscle mass, or nutritional status, or are non- or non-. According to the National Kidney Foundation, irrespective of diagnosis, the stage of the disease is based on the level of kidney function: Stage Description GFR(mL/min/1.73 m(2)) 1 Kidney damage with normal or decreased GFR 90 2 Kidney damage with mild decrease in GFR 60-89 3 Moderate decrease in GFR 30-59 4 Severe decrease in GFR 15-29 5 Kidney failure <15 (or dialysis) 21 Because ethnic data is not always readily available, this report includes an eGFR for both -Americans and non- Americans. The National Kidney Disease Education Program (NKDEP) does not endorse the use of the MDRD equation for patients that are not between the ages of 18 and 70, are , have extremes of body size, muscle mass, or nutritional status, or are non- or non-. According to the National Kidney Foundation, irrespective of diagnosis, the stage of the disease is based on the level of kidney function: Stage Description GFR(mL/min/1.73 m(2)) 1 Kidney damage with normal or decreased GFR 90 2 Kidney damage with mild decrease in GFR 60-89 3 Moderate decrease in GFR 30-59 4 Severe decrease in GFR 15-29 5 Kidney failure <15 (or dialysis) Procedures Date Code Description Status 11/19/2016 36124 Laparscopy Surgery Gastric Restrictive Procedure W/Bypass Completed 11/19/2016 67402 Laparscopy Surgery Gastric Restrictive Procedure W/Bypass Completed 11/07/2016 64920 EKG, Interpretation Only Completed Encounters Type Date Location Provider Dx Diagnosis Office Visit 08/29/2017 Surgical Carlos Manuel Stringer Z98.84 Bariatric 10:15a [facility] TONEY Garces surgery status Office Visit 05/15/2017 Surgical Lionel Yanez MD, Z98.84 Bariatric 10:00a [facility] MATT surgery status Office Visit 09/09/2016 Surgical Lionel Yanez MD, E66.01 Morbid (severe) 11:30a [facility] obesity due to excess calories Z71.3 Dietary counseling and surveillance Office Visit 08/22/2016 9:45a Surgical Gilda Ho E66.01 Morbid [facility] GONZALEZ Higgins (severe) obesity due to excess calories G47.33 Obstructive sleep apnea (adult) (pediatric) E11.9 Type 2 diabetes mellitus without complications Z71.3 Dietary counseling and surveillance Z68.42 Body mass index (BMI) 45.0-49.9, adult Plan of Treatment 11/24/2018 - Honorio Abarca MDR10.2 Pelvic and perineal painComments:Pap sentRecommend eval if pain returns.Considering Laparoscopic tubal ligation, removal of IUD. Will call if wants to schedule.Follow up:Expect Pap result within two weeks, if you do not receive a result, please call the office.
[2018-12-23 07:20] VITALS: BP 99/67
--- NOTE | 2018-12-23 07:38 | UC ---
Throat Pain/Nasal Art HPI - HPI Summary HPI Summary: 43-year-old woman comes in with chief complaint of hypoxia 5 days of upper respiratory tract infection symptoms. She's had fevers chills mild body aches runny nose sore throat. Started to feel like the infection is going down into her chest. She's had some wheezing and she has albuterol which also the wheezing. [id number] medications help the symptoms. - History of Current Complaint Chief Complaint: UCGeneralIllness Stated Complaint: FEVER, SORE THROAT, ACHES Time Seen by Provider: 12/23/18 07:25 Hx Last Menstrual Period: "last week" Pain Intensity: 8 - Allergies/Home Medications Allergies/Adverse Reactions: Allergies Allergy/AdvReac Type Severity Reaction Status Date / Time NSAIDS (Non-Steroidal AdvReac See Comment Verified 12/23/18 07:17 Anti-Inflamma Home Medications: Home Medications Sertraline* [Zoloft*] 50 mg PO DAILY 12/23/18 [History Confirmed 12/23/18] busPIRone TAB* [Buspar TAB*] 5 mg PO BID 12/23/18 [History Confirmed 12/23/18] metFORMIN* [Glucophage 1000 MG TAB *] 1,000 mg PO QPM 12/23/18 [History Confirmed 12/23/18] metFORMIN* [Glucophage 500 MG TAB *] 500 mg PO QAM 12/23/18 [History Confirmed 12/23/18] PMH/Surg Hx/FS Hx/Imm Hx Previously Healthy: Yes Endocrine History: Diabetes Respiratory History: Asthma - Surgical History Surgical History: Yes Surgery Procedure, Year, and Place: SHOULDER SURGERY. [id number]. SURGERY AN FOR FUSED BONES IN SKULL. 2016 D&C. Nov 2016 Gastric bypass - Family History Known Family History: Positive: Cardiac Disease - Social History Alcohol Use: Rare Alcohol Amount: 1/ YEAR Substance Use Type: None Smoking Status (MU): Never Smoked Tobacco Have You Smoked in the Last Year: No - Immunization History Most Recent Influenza Vaccination: decl Most Recent Tetanus Shot: not ordered Most Recent Pneumonia Vaccination: none Review of Systems All Other Systems Reviewed And Are Negative: Yes Constitutional: Positive: Fever, Chills Skin: Positive: Negative Eyes: Positive: Negative ENT: Positive: Sore Throat, Ear Ache, Nasal Discharge, Sinus Congestion Respiratory: Positive: Other - see hpi Cardiovascular: Positive: Negative Gastrointestinal: Positive: Negative Motor: Positive: Negative Neurovascular: Positive: Negative Musculoskeletal: Positive: Myalgia Neurological: Positive: Negative Psychological: Positive: Negative Is Patient Immunocompromised?: No Physical Exam Triage Information Reviewed: Yes Appearance: No Pain Distress, Well-Nourished, Ill-Appearing - mild Vital Signs: Initial Vital Signs Temp 98.8 F 12/23/18 07:14 Pulse 62 12/23/18 07:14 Resp 17 12/23/18 07:14 BP 99/67 12/23/18 07:14 Pulse Ox 99 12/23/18 07:14 Vital Signs Reviewed: Yes Eye Exam: Normal Eyes: Positive: Conjunctiva Clear ENT: Positive: Pharyngeal erythema, Nasal congestion, Nasal drainage, TMs normal Neck exam: Normal Neck: Positive: Supple Respiratory: Positive: Lungs clear, Normal breath sounds, No respiratory distress Cardiovascular: Positive: RRR Musculoskeletal Exam: Normal Musculoskeletal: Positive: Strength Intact, ROM Intact Neurological Exam: Normal Neurological: Positive: Alert, Muscle Tone Normal Psychological Exam: Normal Psychological: Positive: Normal Response To Family, Age Appropriate Behavior Skin Exam: Normal Throat Pain/Nasal Course/Dx - Course Course Of Treatment: DISCUSSED VIRAL VERSES BACTERIAL INFECTION AND THE ROLE OF ANTIBIOTICS. THE PATIENT WISHES TO BE ON ANTIBIOTIC AT THIS TIME. - Differential Dx/Diagnosis Provider Diagnosis: Upper respiratory infection Discharge - Sign-Out/Discharge Documenting (check all that apply): Patient Departure All imaging exams completed and their final reports reviewed: No Studies - Discharge Plan Condition: Stable Disposition: HOME Prescriptions: Amoxicillin PO (*) [Amoxicillin 875 MG (*)] 875 mg PO BID #20 tab Patient Education Materials: Upper Respiratory Infection (ED) Referrals: Keri Krishnamurthy MD [Primary Care Provider] - Additional Instructions: FOLLOW UP WITH YOUR DOCTOR IF NOT COMPLETELY IMPROVED. GET RECHECKED FOR ANY WORSENING OF YOUR CONDITION OR QUESTIONS OR CONCERNS. - Billing Disposition and Condition Condition: STABLE Disposition: Home
== END 2018-12-23 07:50 | disposition home or self-care (01) ==
LOC: UCCORT 07:01
DX: J06.9 Acute upper respiratory infection, unspecified (principal); E11.9 Type 2 diabetes mellitus without complications; J45.909 Unspecified asthma, uncomplicated; Z79.84 Long term (current) use of oral hypoglycemic drugs; Z88.8 Allergy status to other drugs, medicaments and biological substances
CPT/HCPCS: 99212; G0463